=== PATIENT | male | born 1940 | race Caucasian/White ===

== ENCOUNTER 2016-06-27 13:29 | Inpatient (IN) | payer OTHER ==
[~2016-06-27] VITALS: Ht 172.7 cm; Wt 127.4 kg
[~2016-06-27 13:29] MED LIST: ALL300 PO; ASPEC81 PO; CPR250 PO; CRG3125 PO; CYNI1000 INJ; INDO-24 PO; PRED10TA PO; RAMI5CAP PO; ULT/50 PO; VENL150C56 PO; ZCR80 PO
[2016-06-27] MEDS ORDERED: CODCAP PO (14:13)
[2016-06-27] MEDS ORDERED: ETOD200C2 PO (14:13)
[2016-06-27] MEDS ORDERED: OMEG10007 PO (14:13)
[2016-06-27] MEDS ORDERED: CHOL1TAB46 PO (14:13)
[2016-06-27 14:53] LABS: ISTAT CREATININE 1.1 mg/dl (0.6-1.3); ISTAT HEMOGLOBIN 13.9 g/dl (14.0-18.0); ISTAT IONIZED CALCIUM 1.15 mmol/l (1.12-1.32)
--- NOTE | 2016-06-27 14:54 | DIAGNOSTIC IMAGING REPORT ---
CHEST ONE VIEW PORTABLE CLINICAL HISTORY: Dyspnea cough COMPARISON STUDY: 05/15/2014 FINDINGS: Poor respiratory volumes. No major vascular congestion. No focal infiltrate. Severe degenerative change of the shoulders. IMPRESSION: Mild pulmonary vascular congestion Electronically signed by: Marcelino Luciano M.D. 06/27/2016 2:53 PM Dictated Date/Time: 06/27/2016 2:52 PM
[2016-06-27 15:20] LABS: BASO % 0.3 %; BASO ABS # 0.03 K/uL (0-0.2); COMPLETE YES; EOS % 3.6 %; HEMATOCRIT 41.3 % (42-52); IG% 0.8 %; LYMPH % 38.6 %; LYMPH ABS # 3.55 K/uL (1.2-3.4); MEAN CELL VOLUME 91.4 fL (80-100); MEAN CORPUSCULAR HEMOGLOBIN 32.1 pg (25-34); MEAN CORPUSCULAR HGB CONC 35.1 g/dl (32-36); MEAN PLATELET VOLUME 10.5 fL (7.4-10.4); MONO % 8.4 %; NEUT % 48.3 %; PLATELET COUNT 163 K/uL (130-400); RED BLOOD COUNT 4.52 M/uL (4.7-6.1)
[2016-06-27 15:32] LABS: PROTHROMBIN TIME (PATIENT) 11.1 SECONDS (9.0-12.0)
[2016-06-27 15:38] LABS: BUN/CREATININE RATIO 16.4 (10-20); CALCIUM 9.3 mg/dl (8.5-10.1); CREATININE 1.2 mg/dl (0.60-1.40)
[2016-06-27 15:43] LABS: CKMB/CK RATIO 1.4 (0-3.0)
--- NOTE | 2016-06-27 15:45 | DIAGNOSTIC IMAGING REPORT ---
CT ANGIOGRAM OF THE CHEST CLINICAL HISTORY: Shortness of breath. Cough. COMPARISON STUDY: Chest x-ray dated the 2016 TECHNIQUE: Following the IV administration of 114 mL of Optiray-320, CT angiogram of the thorax was performed from the thoracic inlet to the lung bases utilizing the pulmonary embolus protocol. Images are reviewed in the axial, sagittal, and coronal planes. IV contrast was administered without complication. MIP imaging was performed. CT DOSE: 720.71 mGy.cm FINDINGS: There is a partially visualized 14 cm right superior retroperitoneal cyst, likely renal. No pathologically enlarged axillary mediastinal or hilar lymph nodes were visualized. There was no evidence of thoracic aortic dilatation. There are coronary artery calcifications. There is a tiny right upper lobe pulmonary artery filling defect consistent with a tiny embolism. There is also an equivocal filling defect within a left lower lobe pulmonary artery branches that this area is degraded due to motion artifact. No pleural effusions are visualized. Evaluation the parenchyma is significantly limited due to respiratory motion artifact. There is no focal pulmonary consolidation IMPRESSION: 1. Small right upper lobe pulmonary artery filling defect, consistent with a pulmonary embolus. 2. Partially visualized 14 cm cyst within the right retroperitoneum, likely representing a renal cyst Electronically signed by: Dwayne Brower M.D. 06/27/2016 3:43 PM Dictated Date/Time: 06/27/2016 3:31 PM
--- NOTE | 2016-06-27 15:57 | EMERGENCY ROOM VISIT NOTE ---
ED Visit Note First contact with patient: 14:09 Patient was seen by our PA/[employer]. I was involved in the patient's care and did evaluate the patient myself. I was involved in the care throughout the ER stay. The patient's workup does show evidence for a DVT and PE, he is being administered IV heparin. Admission/observation is warranted. The patient is aware of his findings.
[2016-06-27] MEDS ORDERED: HEPARIN SOD 5000 UNIT/0.5 ML CARP IV STA (15:59)
[2016-06-27] MEDS ORDERED: ONDANSETRON INJ 2 MG/ML 2 ML VIAL IV PRN (16:15)
[2016-06-27] MEDS ORDERED: ACETAMINOPHEN 325 MG TAB PO PRN (16:15)
[2016-06-27] MEDS ORDERED: ENOXAPARIN 1 MG/KG SQ SCH (16:15)
[2016-06-27] MEDS ORDERED: NITROGLYCERIN 0.4 MG SL PER TAB CHARGE SL PRN (16:15)
[2016-06-27] MEDS ORDERED: HEPARIN 25,000 UNIT/500ML D5W 500 ML IV PRN (16:15)
[2016-06-27] MEDS ORDERED: SODIUM CHLORIDE 0.9% 1000ML 1,000 ML IV SCH (16:30)
[2016-06-27] MEDS ORDERED: DIPHTHERIA/TETANUS/PERTUSSIS 0.5 ML SYR/VIAL IM. ONE (16:45)
--- NOTE | 2016-06-27 16:57 | History and Physical ---
History & Physical Date & Time of Service: Jun 27, 2016 at 16:31 Chief Complaint: Left Leg Pain-Dx: Blood Clot Primary Care Physician: Jenny Jones D.O. History of Present Illness Source: patient, family, clinic records, hospital records Patient seen and examined. 75 year old male with PMHx of CAD s/p stent, H/o PE, HLD, HTN and other problems listed below presents to the ED from PCP Dr. Jones's office with a DVT. Patient reports he has had on again off again left calf pain for at least a year. He reports he slipped and fell on the ice last month and since then his calf has been more sore. He went to see his PCP today and Doppler US showed unstable thrombotic material in the left popliteal vein. The patient has been having increased dyspnea on exertion so there was concern that he may have a PE so he was referred to the ED for further evaluation. He denies fevers,chills, URI symptoms chest pain, palpitations, nausea, vomiting, diarrhea, dysuria, edema. 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 Daughter states that she has had PEs and was told they were hereditary. Patient reports he no longer takes coumadin. He denies any history of abnormal bleeding. In the ED VS are stable, he is oxygenating well on RA. CTA shows small RUL pulmonary embolism. He will be started on Lovenox. He will be admitted for further workup and treatment. Past Medical/Surgical History Medical Problems: (1) BPH (benign prostatic hyperplasia) Status: Chronic (2) Coronary artery disease Status: Chronic (3) Depression Status: Chronic (4) GERD (gastroesophageal reflux disease) Status: Chronic (5) Gout Status: Chronic (6) Heart attack Status: Resolved (7) HLD (hyperlipidemia) Status: Chronic (8) Hypertension Status: Chronic (9) spermatocele removal Status: Chronic Surgical Problems: (1) H/O cardiac catheterization Status: Resolved (2) H/O colonoscopy Status: Chronic (3) History of esophagogastroduodenoscopy (EGD) Status: Chronic (4) S/P tendon repair Status: Chronic (5) Stented coronary artery Permanent Comment: 05/20/06 LAD, diagonal Status: Chronic Family History Patient reports no known family medical history. Social History Smoking Status: Light Tobacco Smoker Alcohol Use: none Marital Status: Housing status: lives with family Occupational Status: employed Immunizations History of Influenza Vaccine: Yes Influenza Vaccine Date: October 23, 2006 History of Tetanus Vaccine?: No History of Pneumococcal: Yes Pneumococcal Date: October 23, 2006 History of Hepatitis B Vaccine: No Allergies Coded Allergies: No Known Allergies (Verified Allergy, Unknown, 01/23/07) Home Medications Scheduled Allopurinol (Allopurinol), 300 MG PO DAILY Aspirin Enteric Coated (Ecotrin Or Generic *), 81 MG PO DAILY Carvedilol (Carvedilol), 3.125 MG PO BID Cholecalciferol (Vitamin D3), 5,000 UNITS PO DAILY Cod Liver Oil (Cod Liver Oil), 1 CAP PO DAILY Cyanocobalamin (Cyanocobalamin), 1,000 MCG INJ MONTHLY Fish Oil ([place]-3), 1 CAP PO DAILY Ramipril (Ramipril), 5 MG PO DAILY Simvastatin (Simvastatin), 80 MG PO QPM Venlafaxine Hcl (Effexor Extended Rel), 150 MG PO DAILY Scheduled PRN Etodolac (Etodolac), 200 MG PO TID PRN for Pain Review of Systems See above for pertinent positives & negatives. A total of 10 systems reviewed and were otherwise negative. Physical Exam Vital Signs Date Time Temp Pulse Resp B/P Pulse Ox O2 Delivery O2 Flow Rate FiO2 06/27/16 15:21 64 06/27/16 13:35 36.3 66 18 116/81 96 Room Air General Appearance: + pertinent finding (WD/WN 75 year old male lying in bed in NAD with daughter at bedside ) Head: normocephalic, atraumatic Eyes: PERRL, EOMI, sclerae normal ENT: hearing grossly normal, pharynx normal Neck: supple, no JVD, trachea midline Respiratory/Chest: chest non-tender, lungs clear, normal breath sounds, no respiratory distress, no accessory muscle use Cardiovascular: regular rate, rhythm, no edema, no gallop, no JVD, no murmur, normal peripheral pulses Abdomen/GI: normal bowel sounds, non tender, soft Back: normal inspection, no muscle spasm Extremities/Musculoskelatal: no calf tenderness, normal capillary refill, no pedal edema Neurologic/Psych: alert, oriented x 3, + pertinent finding (no motor or sensory deficits noted on gross exam ) Skin: normal color, warm/dry, no rash, + pertinent finding (scatter ecchymosis BL shins ) Lymphatic: no adenopathy Diagnostics Laboratory Results Results Past 24 Hours Test 06/27/16 14:37 06/27/16 14:39 06/27/16 15:01 06/27/16 15:05 Range/Units Bedside Hemoglobin 13.9 14.0-18.0 g/dl Bedside Hematocrit 41 42-52 % Bedside Sodium 139 135-144 mEq/L Bedside Potassium 4.4 3.3-5.0 mEq/L Bedside Chloride 102 101-112 mEq/L Bedside Total CO2 27 24-31 mEq/l Anion Gap 15.0 6.0 3-11 mmol/L Bedside Blood Urea Nitrogen 27 7-18 mg/dl Bedside Creatinine 1.1 0.6-1.3 mg/dl Bedside Glucose (other) 80 70-99 mg/dl Bedside Ionized Calcium (Diony) 1.15 1.12-1.32 mmol/l Bedside Troponin I 0.000 0-0.045 ng/ml White Blood Count 9.20 4.8-10.8 K/uL Red Blood Count 4.52 4.7-6.1 M/uL Hemoglobin 14.5 14.0-18.0 g/dL Hematocrit 41.3 42-52 % Mean Corpuscular Volume 91.4 80-100 fL Mean Corpuscular Hemoglobin 32.1 25-34 pg Mean Corpuscular Hemoglobin Concent 35.1 32-36 g/dl Platelet Count 163 130-400 K/uL Mean Platelet Volume 10.5 7.4-10.4 fL Neutrophils (%) (Auto) 48.3 % Lymphocytes (%) (Auto) 38.6 % Monocytes (%) (Auto) 8.4 % Eosinophils (%) (Auto) 3.6 % Basophils (%) (Auto) 0.3 % Neutrophils # (Auto) 4.45 1.4-6.5 K/uL Lymphocytes # (Auto) 3.55 1.2-3.4 K/uL Monocytes # (Auto) 0.77 0.11-0.59 K/uL Eosinophils # (Auto) 0.33 0-0.5 K/uL Basophils # (Auto) 0.03 0-0.2 K/uL RDW Standard Deviation 46.9 36.4-46.3 fL RDW Coefficient of Variation 14.0 11.5-14.5 % Immature Granulocyte % (Auto) 0.8 % Immature Granulocyte # (Auto) 0.07 0.00-0.02 K/uL Prothrombin Time 11.1 9.0-12.0 SECONDS Prothromb Time International Ratio 1.0 0.9-1.1 Activated Partial Thromboplast Time 26.8 21.0-31.0 SECONDS Partial Thromboplastin Ratio 1.0 Sodium Level 141 136-145 mmol/L Potassium Level 4.0 3.5-5.1 mmol/L Chloride Level 105 98-107 mmol/L Carbon Dioxide Level 30 21-32 mmol/L Blood Urea Nitrogen 20 7-18 mg/dl Creatinine 1.20 0.60-1.40 mg/dl Est Creatinine Clear Calc Drug Dose 66.4 ml/min Estimated GFR () 68.1 Estimated GFR (Non- 58.8 BUN/Creatinine Ratio 16.4 10-20 Random Glucose 78 70-99 mg/dl Calcium Level 9.3 8.5-10.1 mg/dl Total Bilirubin 1.1 0.2-1 mg/dl Aspartate Amino Transf (AST/SGOT) 17 15-37 U/L Alanine Aminotransferase (ALT/SGPT) 19 12-78 U/L Alkaline Phosphatase 78 45-117 U/L Total Creatine Kinase 97 39-308 U/L Creatine Kinase MB 1.4 0.5-3.6 ng/ml Creatine Kinase MB Ratio 1.4 0-3.0 Pro-B-Type Natriuretic Peptide 315 0-900 pg/ml Total Protein 6.9 6.4-8.2 gm/dl Albumin 3.4 3.4-5.0 gm/dl Globulin 3.5 2.5-4.0 gm/dl Albumin/Globulin Ratio 1.0 0.9-2 Diagnostic Radiology CXR Per radiologist read: IMPRESSION: Mild pulmonary vascular congestion CTA CHEST Per radiologist read: IMPRESSION: 1. Small right upper lobe pulmonary artery filling defect, consistent with a pulmonary embolus. 2. Partially visualized 14 cm cyst within the right retroperitoneum, likely representing a renal cyst EKG NSR 68 BPM, LAFB, LVH, QTc 424 Impression Assessment and Plan 75 year old male presents to the ED after Doppler US sound as outpatient showed DVT. Patient with increased dyspnea on exertion. CTA chest shows small PE ACUTE PULMONARY EMBOLISM/DVT -[facility] likely add Coumadin in AM, defer to attending -Hypercoagulability workup pending -Echo pending to r/o Right heart strain -Serial Verenice -CBC, PRP, Mg daily -VS stable, monitor CAD s/p STENT -stable -Continue BB, ASA, Statin, ACEI -update echo -monitor in tele HLD -continue Statin HTN -stable -continue BB, Ramipril GOUT -continue Allopurinol DEPRESSION -continue Effexor B12 deficiency -continue monthly injections RENAL CYST - states this is chronic -incidental finding on CT -follow up with PCP DVT PROPHYLAXIS: therapeutic Lovenox 1mg/kg CODE STATUS: FULL CODE per my discussion with the patient DISPO:In my clinical judgment this beneficiary meets acute admission criteria, established by [facility], that includes being hospitalized through two midnights. Patient seen in collaboration with Dr. Ferro ATTENDING ADDENDUM care coordinated with DAVE Saini please refer to her notes for full details, I agree with her notes patient seen and examined, records reviewed by myself as well on exam, patient seen resting in bed, in good spirits denies dyspnea, chest pain, dizziness no bleeding no other symptoms VS noted and reviewed oriented x 3 , not in distress, speaks in sentences with no effort nor accessory muscle use normal rate, regular rhythm, no murmurs clear breath sounds bilaterally non distended, soft, nontender (+) mild ecchymoses on the right knee no bipedal edema,warmth no neuro deficits Hg 14 crea 1.2 ASSESSMENT/PLAN> DVT, LEFT POPLITEAL VEIN PULMONARY EMBOLISM, RIGHT - history of PE in the past and was on coumadin - hemodynamically stable - ff up echo Lovenox BID - coumadin tomorrow will need to re-establish with coumadin clinic HISTORY OF CAD stable continue usual medications other diagnoses and plan of care as per DAVE Saini's notes Reece Ferro MD VTE Prophylaxis VTE Risk Assessment Done? Y/N: Yes Risk Level: High
[2016-06-27] MEDS ORDERED: ENOXAPARIN 150 MG/1ML SYR SQ STA (17:34)
[2016-06-27 18:30] VITALS: BP 152/80; PULSE 63; TEMP 36.4; O2SAT 98; Ht 172.7 cm; Wt 127.4 kg
[2016-06-27 19:35] VITALS: BP 134/81; PULSE 63; TEMP 36.5; O2SAT 94
[2016-06-27] MEDS: CARVEDILOL 3.125 MG TAB PO SCH (20:47)
[2016-06-27] MEDS: SIMVASTATIN 80 MG TAB PO SCH (20:47)
[2016-06-27 22:29] LABS: CKMB/CK RATIO 1.2 (0-3.0)
--- NOTE | 2016-06-27 23:10 | EMERGENCY ROOM VISIT NOTE ---
History First contact with patient: 14:09 Chief Complaint: LEG PAIN,LEG INJURY Stated Complaint: DVT (DEEP VENOUS THROMBOSIS) History of Present Illness The patient is a 75 year old male who presents to the Emergency Room via private vehicle accompanied by family with complaints of "DVT". The patient states that earlier today he was at [facility] with his family doctor who performed an ultrasound because he noticed that at night his left leg annoyed him. He also has been feeling winded today. The DVT they performed there in the outpatient setting revealed an unstable thrombotic material in the left popliteal vein. The patient states that he does have a history of vomiting embolism which occurred about 30 years ago. His who is present also states that he seems to open winded/experienced shortness of breath lately. There is no chest pain today. He does have history of HI. Review of Systems A complete 10-point Review of Systems was discussed with the patient, with pertinent positives and negatives listed in the History of Present Illness. All remaining Review of Systems questions can be considered negative unless otherwise specified. Past Medical/Surgical History Medical Problems: (1) BPH (benign prostatic hyperplasia) (2) Coronary artery disease (3) Depression (4) DVT (deep venous thrombosis) (5) GERD (gastroesophageal reflux disease) (6) Gout (7) Heart attack (8) HLD (hyperlipidemia) (9) Hypertension (10) Pulmonary embolism (11) spermatocele removal Surgical Problems: (1) H/O cardiac catheterization (2) H/O colonoscopy (3) History of esophagogastroduodenoscopy (EGD) (4) S/P tendon repair (5) Stented coronary artery Family History Patient reports no known family medical history. Social History Smoking Status: Light Tobacco Smoker Marital Status: Housing Status: lives with significant other Occupation Status: employed Current/Historical Medications Scheduled Allopurinol (Allopurinol), 300 MG PO DAILY Aspirin Enteric Coated (Ecotrin Or Generic *), 81 MG PO DAILY Carvedilol (Carvedilol), 3.125 MG PO BID Cholecalciferol (Vitamin D3), 5,000 UNITS PO DAILY Cod Liver Oil (Cod Liver Oil), 1 CAP PO DAILY Cyanocobalamin (Cyanocobalamin), 1,000 MCG INJ MONTHLY Fish Oil (Hugo-3), 1 CAP PO DAILY Ramipril (Ramipril), 5 MG PO DAILY Simvastatin (Simvastatin), 80 MG PO QPM Venlafaxine Hcl (Effexor Extended Rel), 150 MG PO DAILY Scheduled PRN Etodolac (Etodolac), 200 MG PO TID PRN for Pain Allergies Coded Allergies: No Known Allergies (Verified Allergy, Unknown, 01/23/07) Physical Exam Vital Signs Date Time Temp Pulse Resp B/P Pulse Ox O2 Delivery O2 Flow Rate FiO2 06/27/16 15:21 64 06/27/16 13:35 36.3 66 18 116/81 96 Room Air Pain Rating (0-10): 0 Physical Exam VITAL SIGNS - Vital signs and nursing notes were reviewed. Patient is afebrile , normotensive, non-tachycardic and is saturating well on room air 96%. GENERAL -75-year-old male appearing his stated age who is in no acute distress. Communicates well with provider and answers questions appropriately. SKIN - Without rashes. There are small contusions and abrasions noted over the right leg. HEAD - NC/AT. EYES - Sclera anicteric. Palpebral conjunctiva pink and moist with no injection noted. EARS - No deformities of external structures noted on gross examination bilaterally. NOSE - Midline and without cyanosis. No epistaxis or purulent drainage noted. MOUTH/OROPHARYNX - Without perioral cyanosis. NECK - Neck with FROM. LUNGS - Chest wall symmetric without accessory muscle use, intercostals retractions, or central cyanosis. Normal vesicular breath sounds CTA B/L. No wheezes, rales, or rhonchi appreciated. CARDIAC - RRR with S1/S2. No murmur, rubs, or gallops appreciated. EXTREMITIES - No clubbing or peripheral cyanosis. No pretibial edema present. Palpable cord in left calf. +5/5 strength noted in UE/LE bilaterally. NEUROLOGIC - Cranial nerves II through XII grossly intact. PSYCH - Pt is very pleasant and interacts well with examiner. Medical Decision & Procedures ER Provider Diagnostic Interpretation: CHEST ONE VIEW PORTABLE CLINICAL HISTORY: Dyspnea cough COMPARISON STUDY: 05/15/2014 FINDINGS: Poor respiratory volumes. No major vascular congestion. No focal infiltrate. Severe degenerative change of the shoulders. IMPRESSION: Mild pulmonary vascular congestion Electronically signed by: Marcelino Luciano M.D. 06/27/2016 2:53 PM Dictated Date/Time: 06/27/2016 2:[address] ANGIOGRAM OF THE CHEST CLINICAL HISTORY: Shortness of breath. Cough. COMPARISON STUDY: Chest x-ray dated the 2016 TECHNIQUE: Following the IV administration of 114 mL of Optiray-320, CT angiogram of the thorax was performed from the thoracic inlet to the lung bases utilizing the pulmonary embolus protocol. Images are reviewed in the axial, sagittal, and coronal planes. IV contrast was administered without complication. MIP imaging was performed. CT DOSE: 720.71 mGy.cm FINDINGS: There is a partially visualized 14 cm right superior retroperitoneal cyst, likely renal. No pathologically enlarged axillary mediastinal or hilar lymph nodes were visualized. There was no evidence of thoracic aortic dilatation. There are coronary artery calcifications. There is a tiny right upper lobe pulmonary artery filling defect consistent with a tiny embolism. There is also an equivocal filling defect within a left lower lobe pulmonary artery branches that this area is degraded due to motion artifact. No pleural effusions are visualized. Evaluation the parenchyma is significantly limited due to respiratory motion artifact. There is no focal pulmonary consolidation IMPRESSION: 1. Small right upper lobe pulmonary artery filling defect, consistent with a pulmonary embolus. 2. Partially visualized 14 cm cyst within the right retroperitoneum, likely representing a renal cyst Electronically signed by: Dwayne Brower M.D. 06/27/2016 3:43 PM Dictated Date/Time: 06/27/2016 3:31 PM Laboratory Results 06/27/16 15:01 Red Blood Count 4.52, Mean Corpuscular Volume 91.4, Mean Corpuscular Hemoglobin 32.1, Mean Corpuscular Hemoglobin Concent 35.1, Mean Platelet Volume 10.5, Neutrophils (%) (Auto) 48.3, Lymphocytes (%) (Auto) 38.6, Monocytes (%) (Auto) 8.4, Eosinophils (%) (Auto) 3.6, Basophils (%) (Auto) 0.3, Neutrophils # (Auto) 4.45, Lymphocytes # (Auto) 3.55, Monocytes # (Auto) 0.77, Eosinophils # (Auto) 0.33, Basophils # (Auto) 0.03 06/27/16 15:01 Test 06/27/16 14:37 06/27/16 14:39 06/27/16 15:01 Bedside Hemoglobin 13.9 g/dl (14.0-18.0) Bedside Hematocrit 41 % (42-52) Bedside Sodium 139 mEq/L (135-144) Bedside Potassium 4.4 mEq/L (3.3-5.0) Bedside Chloride 102 mEq/L (101-112) Bedside Total CO2 27 mEq/l (24-31) Bedside Blood Urea Nitrogen 27 mg/dl (7-18) Bedside Creatinine 1.1 mg/dl (0.6-1.3) Bedside Glucose (other) 80 mg/dl (70-99) Bedside Ionized Calcium (Diony) 1.15 mmol/l (1.12-1.32) Bedside Troponin I 0.000 ng/ml (0-0.045) White Blood Count 9.20 K/uL (4.8-10.8) Red Blood Count 4.52 M/uL (4.7-6.1) Hemoglobin 14.5 g/dL (14.0-18.0) Hematocrit 41.3 % (42-52) Mean Corpuscular Volume 91.4 fL (80-100) Mean Corpuscular Hemoglobin 32.1 pg (25-34) Mean Corpuscular Hemoglobin Concent 35.1 g/dl (32-36) Platelet Count 163 K/uL (130-400) Mean Platelet Volume 10.5 fL (7.4-10.4) Neutrophils (%) (Auto) 48.3 % Lymphocytes (%) (Auto) 38.6 % Monocytes (%) (Auto) 8.4 % Eosinophils (%) (Auto) 3.6 % Basophils (%) (Auto) 0.3 % Neutrophils # (Auto) 4.45 K/uL (1.4-6.5) Lymphocytes # (Auto) 3.55 K/uL (1.2-3.4) Monocytes # (Auto) 0.77 K/uL (0.11-0.59) Eosinophils # (Auto) 0.33 K/uL (0-0.5) Basophils # (Auto) 0.03 K/uL (0-0.2) RDW Standard Deviation 46.9 fL (36.4-46.3) RDW Coefficient of Variation 14.0 % (11.5-14.5) Immature Granulocyte % (Auto) 0.8 % Immature Granulocyte # (Auto) 0.07 K/uL (0.00-0.02) Prothrombin Time 11.1 SECONDS (9.0-12.0) Prothromb Time International Ratio 1.0 (0.9-1.1) Activated Partial Thromboplast Time 26.8 SECONDS (21.0-31.0) Partial Thromboplastin Ratio 1.0 Anion Gap 6.0 mmol/L (3-11) Est Creatinine Clear Calc Drug Dose 66.4 ml/min Estimated GFR () 68.1 Estimated GFR (Non- 58.8 BUN/Creatinine Ratio 16.4 (10-20) Calcium Level 9.3 mg/dl (8.5-10.1) Total Bilirubin 1.1 mg/dl (0.2-1) Aspartate Amino Transf (AST/SGOT) 17 U/L (15-37) Alanine Aminotransferase (ALT/SGPT) 19 U/L (12-78) Alkaline Phosphatase 78 U/L (45-117) Pro-B-Type Natriuretic Peptide 315 pg/ml (0-900) Total Protein 6.9 gm/dl (6.4-8.2) Albumin 3.4 gm/dl (3.4-5.0) Globulin 3.5 gm/dl (2.5-4.0) Albumin/Globulin Ratio 1.0 (0.9-2) Medical Decision Patient was seen and evaluated as above. After obtaining a thorough history and physical examination IV access was obtained and the above workup was obtained as well as specific coagulation studies prior to potential anticoagulation. I was able to view the disc of the ultrasound. Report was then obtained from Mirna Millard. It revealed an unstable thrombotic material. There was concern for potential PE the patient's past medical history as well as his shortness of breath. I was able to speak with the potential omitting team regarding anticoagulants and heparin was chosen. I ordered heparin for the patient regular standard bolus. CT scan was obtained and revealed pulmonary embolism. No leukocytosis with slight anemia noted on CBC. Coagulation studies were within normal limits. The specific coagulation panels are pending. CMP reveals slight elevation of BUN and total bilirubin. BNP and troponin were both negative. Case was discussed with my attending. I do believe the patient would benefit from inpatient management. His EKG revealed normal sinus rhythm rate of 63 bpm. There was no ectopy or ischemic changes noted. The patient was administered further evaluation and management. The patient was informed of a 14 cm cyst within the right retroperitoneum. In evaluation treatment this patient the following differential diagnoses were entertained: PE, HI, bronchitis, pneumonia, among others. Impression Primary Impression: Pulmonary embolism Additional Impression: DVT (deep venous thrombosis) Departure Information Dispostion Admitted as an inpatient Condition FAIR Referrals Jenny Jones D.O. (PCP) Forms HOME CARE DOCUMENTATION FORM, IMPORTANT VISIT INFORMATION Patient Instructions [facility] Problem Qualifiers Primary Impression: Pulmonary embolism Pulmonary embolism type: other Chronicity: acute Additional Impression: DVT (deep venous thrombosis) DVT location: lower extremity Affected thrombotic vein of extremity: popliteal Laterality: left Chronicity: acute Qualified Codes: I82.432 - Acute embolism and thrombosis of left popliteal vein
[2016-06-27 23:57] VITALS: BP 113/71; PULSE 72; TEMP 36.9; O2SAT 94
[2016-06-28] VITALS (8 sets, daily range): BP systolic 108–119; BP diastolic 67–77; PULSE 60–77; TEMP 36.3–36.8; O2SAT 92–95
[2016-06-28 03:49] LABS: INR 1.1 (0.9-1.1); PARTIAL THROMBOPLASTIN RATIO 1.2; PROTHROMBIN TIME (PATIENT) 11.3 SECONDS (9.0-12.0)
[2016-06-28 04:02] LABS: BLOOD UREA NITROGEN 17 mg/dl (7-18); BUN/CREATININE RATIO 15.7 (10-20); CALCIUM 8.7 mg/dl (8.5-10.1); CARBON DIOXIDE 27 mmol/L (21-32); CHLORIDE 105 mmol/L (98-107); GLUCOSE 90 mg/dl (70-99); MAGNESIUM 1.8 mg/dl (1.8-2.4); POTASSIUM 3.7 mmol/L (3.5-5.1); SODIUM 141 mmol/L (136-145)
[2016-06-28 04:08] LABS: CKMB/CK RATIO 1.3 (0-3.0); HEMATOCRIT 39.5 % (42-52); MEAN CELL VOLUME 91.9 fL (80-100); MEAN CORPUSCULAR HEMOGLOBIN 31.9 pg (25-34); MEAN CORPUSCULAR HGB CONC 34.7 g/dl (32-36); MEAN PLATELET VOLUME 10.9 fL (7.4-10.4); PLATELET COUNT 171 K/uL (130-400); WHITE BLOOD COUNT 8.13 K/uL (4.8-10.8)
[2016-06-28] MEDS: ENOXAPARIN 150 MG/1ML SYR SQ SCH ×2 (06:11→18:47)
--- NOTE | 2016-06-28 07:05 | Clinical Documentation Query ---
CLINICAL DOCUMENTATION QUERY 75 year old male who presents to the Emergency Room via private vehicle accompanied by family with complaints of "DVT" and found to have PE. In your clinical opinion is this patient being managed for: ( X ) Acute DVTof left popliteal vein "provoking/causing" PE. ( ) Other explanation of clinical findings (Please Explain) ( ) Unable to determine (Please Define) ( ) Need to Discuss ( ) Not Agree The medical record reflects the following clinical findings, treatment, and risk factors. Clinical Indicators: Per H&P "left popliteal vein DVT and right PE. Treatment: Heparin GTT, ASA, Risk Factors: Age and hx of previous PE Please clarify and document your clinical opinion in the progress notes and discharge summary. Terms such as "probable", "suspected", "likely", "questionable", "possible", or "still to be ruled out" are acceptable. IF IN AGREEMENT, YOU MUST DOCUMENT ABOVE DIAGNOSTIC STATEMENT IN DAILY PROGRESS NOTES AND DISCHARGE SUMMARY. This document is not part of the patient's record. Thank You, Nehemiah Bustamante, JASMYN [phone]
[2016-06-28] MEDS: ASPIRIN 81 MG ECTAB PO SCH (07:48)
[2016-06-28] MEDS: ENALAPRIL MALEATE 10 MG TAB PO SCH (07:48)
[2016-06-28] MEDS: ALLOPURINOL 300 MG TAB PO SCH (07:48)
[2016-06-28] MEDS: VENLAFAXINE HCL XR 150 MG CAPXR PO SCH (07:48)
[2016-06-28] MEDS: CARVEDILOL 3.125 MG TAB PO SCH ×2 (07:48→20:31)
[2016-06-28] MEDS: CHOLECALCIFEROL 1000 INTER.UNIT TAB PO SCH (07:48)
[2016-06-28] MEDS ORDERED: ENALAPRIL MALEATE 10 MG TAB PO SCH (09:00)
[2016-06-28] MEDS ORDERED: PERFLUTREN LIPID MICROSPHERE (DEFINITY) IV ONE (11:07)
--- NOTE | 2016-06-28 13:08 | ECHOCARDIOGRAM REPORT ---
*NOTICE TO RECEIVING [employer] This information is strictly Confidential and protected under [place] law. [place] law prohibits you from making any further disclosure of this information unless further disclosure is expressly permitted by the written consent of the person to whom it pertains or is authorized by law. A general authorization for the release of medical or other information is not sufficient for this purpose. Hospital accepts no responsibility if the information is made available to any other person, INCLUDING THE PATIENT. Interpretation Summary * Name: TONG KEARNEY Study Date: 06/28/2016 10:31 AM BP: 112/67 mmHg * Patient Location: [facility]\S\N284\S\2 HR: 63 * : 1940 (M/d/yyyy) Gender: Male Height: 66 in * Age: 75 yrs Ethnicity: [place] Weight: 275 lb * Ordering Physician: Meena Saini * Referring Physician: Self, Referred * Performed By: Li So RDCS * * Reason For Study: PE, R/O RIGHT HEART STRAIN * BSA: 2.3 m2 * History: PE, R/O RIGHT HEART STRAIN * -- Conclusions -- * Normal LV chamber size with mild concentric LVH. * Normal LV systolic function, EF 55-60%. * No segmental left ventricular wall motion abnormalities are noted. * Grade I diastolic dysfunction. * The right ventricular cavity size is normal (basal dimension <4.2 cm in right ventricular apical 4-chamber view). Normal RV systolic function by Doppler. * Aortic valve sclerosis moderate, without significant aortic valvular stenosis. * Moderate to large sized, anterior loculated pericardial effusion with significant stranging to suggest chronicity. No hemodynamic compromise. Procedure Details * A contrast injection of Definity was performed to improve assessment of LV function. * Contrast was injected into an intravenous site in the right arm. * One vial of Definity ultrasound contrast was diluted in normal saline to a total volume of 10 ml. A total of '2' ml of solution was administered during imaging. * Lot # [id number] of Definity utilized for procedure. * Expiration date JUN 12. * The attending nurse who injected the contrast agent was WARREN ERICKSON RN. Left Ventricle * The left ventricle is normal in size. * There is mild concentric left ventricular hypertrophy. * Ejection Fraction = 55-60%. * Left ventricular systolic function is normal. * No segmental left ventricular wall motion abnormalities are noted. * The left ventricular wall motion is normal. Right Ventricle * The right ventricular cavity size is normal (basal dimension <4.2 cm in right ventricular apical 4-chamber view). * The right ventricular systolic function is normal as assessed by tricuspid annular plane systolic excursion (TAPSE) (normal >1.5 cm). Atria * The left atrial size is normal. * Right atrial size is normal. * No ASD detected; PFO is not assessed. Mitral Valve * The mitral valve is normal in structure and function. Tricuspid Valve * The tricuspid valve is normal in structure and function. Aortic Valve * The aortic valve is trileaflet. * Aortic valve sclerosis moderate, without significant aortic valvular stenosis. * There is no significant aortic regurgitation. Pulmonic Valve * The pulmonary valve is not well seen, but the Doppler examination is normal without significant regurgitation or stenosis. Great Vessels * The aortic root is normal size. Pericardium/Pleural * Moderate to large sized, anterior loculated pericardial effusion with significant stranging to suggest chronicity. No hemodynamic compromise. Left Ventricular Diastolic Function * Grade I diastolic dysfunction, (abnormal relaxation pattern). MMode 2D Measurements and Calculations IVSd 1.3 cm IVSs 1.4 cm LVIDd 5.0 cm LVIDs 3.5 cm LVPWd 1.6 cm LVPWs 1.5 cm IVS/LVPW 0.78 FS 30.1 % EDV(Teich) 118.9 ml ESV(Teich) 50.9 ml EF(Teich) 57.2 % EDV(cubed) 125.9 ml ESV(cubed) 42.9 ml EF(cubed) 65.9 % % IVS thick 6.6 % % LVPW thick -9.94 % LV mass(C)d 312.5 grams LV mass(C)dI 136.5 grams/m\S\2 LV mass(C)s 178.0 grams LV mass(C)sI 77.7 grams/m\S\2 SV(Teich) 68.0 ml SI(Teich) 29.7 ml/m\S\2 SV(cubed) 82.9 ml SI(cubed) 36.2 ml/m\S\2 Ao root diam 3.4 cm Ao root area 9.0 cm\S\2 LA dimension 2.9 cm LA/Ao 0.86 LVAd ap4 33.2 cm\S\2 LVLd ap4 8.3 cm EDV(MOD-sp4) 106.9 ml EDV(sp4-el) 112.8 ml LVAs ap4 20.7 cm\S\2 LVLs ap4 8.0 cm ESV(MOD-sp4) 43.3 ml ESV(sp4-el) 45.6 ml EF(MOD-sp4) 59.5 % EF(sp4-el) 59.6 % LVAd ap2 32.6 cm\S\2 LVLd ap2 9.1 cm EDV(MOD-sp2) 94.5 ml EDV(sp2-el) 99.0 ml LVAs ap2 21.7 cm\S\2 LVLs ap2 8.2 cm ESV(MOD-sp2) 48.3 ml ESV(sp2-el) 48.9 ml EF(MOD-sp2) 48.9 % EF(sp2-el) 50.6 % LVLd %diff 9.3 % EDV(MOD-bp) 104.8 ml LVLs %diff 2.4 % ESV(MOD-bp) 45.9 ml EF(MOD-bp) 56.2 % SV(MOD-sp4) 63.6 ml SI(MOD-sp4) 27.8 ml/m\S\2 SV(MOD-sp2) 46.2 ml SI(MOD-sp2) 20.2 ml/m\S\2 SV(MOD-bp) 58.9 ml SI(MOD-bp) 25.7 ml/m\S\2 SV(sp4-el) 67.2 ml SI(sp4-el) 29.4 ml/m\S\2 SV(sp2-el) 50.1 ml SI(sp2-el) 21.9 ml/m\S\2 Doppler Measurements and Calculations MV E max sujit 48.5 cm/sec MV A max sujit 83.9 cm/sec MV E/A 0.58 MV dec time 0.37 sec Ao V2 max 193.3 cm/sec Ao max PG 14.9 mmHg Ao max PG (full) 10.8 mmHg Ao V2 mean 130.0 cm/sec Ao mean PG 7.7 mmHg Ao mean PG (full) 5.7 mmHg Ao V2 VTI 43.5 cm LV V1 max PG 4.2 mmHg LV V1 mean PG 2.1 mmHg LV V1 max 101.9 cm/sec LV V1 mean 67.0 cm/sec LV V1 VTI 20.3 cm SV(Ao) 392.8 ml SI(Ao) 171.5 ml/m\S\2
--- NOTE | 2016-06-28 19:45 | Progress Note ---
Internal Med Progress Note Date of Service: Jun 28, 2016. Provider Documentation: SUBJECTIVE: resting comfortably denies chest pain or sob afebrile hemodynamics stable OBJECTIVE: Vital Signs-as noted below Exam: General-alert and oriented ENT-normal hearing Neck-no neck masses Lungs-cta b/l no wheezing no crackles Heart-s1 and s2 heard regular rate and rhythm no murmurs Abdomen-soft bowel sounds present no discomfort no distension Extremities-no erythema no edema Neuro-alert and awake moves extremities Lab data as noted below. ASSESSMENT & PLAN: 75 year old male presents to the ED after Doppler US sound as outpatient showed DVT. Patient with increased dyspnea on exertion. CTA chest shows small PE ACUTE PULMONARY EMBOLISM/DVT DVT causing PE on iv heparin and Coumadin echo -moderate to large anterior pericardial effusion. No hemodynamic compromise. f/u inr CAD s/p STENT stable on BB, ASA, Statin, ACEI HLD on Statin HTN stable on BB, Ramipril GOUT On Allopurinol DEPRESSION On Effexor B12 deficiency monthly injections RENAL CYST states this is chronic incidental finding on CT follow up with PCP DVT PROPHYLAXIS: therapeutic Lovenox 1mg/kg CODE STATUS: FULL CODE DISPOSITION to be determined Vital Signs: Date Time Temp Pulse Resp B/P Pulse Ox O2 Delivery O2 Flow Rate FiO2 06/28/16 16:00 92 Room Air 06/28/16 14:43 36.4 64 20 109/69 92 06/28/16 13:17 60 94 06/28/16 12:00 Room Air 06/28/16 07:45 Room Air 06/28/16 07:28 36.8 63 16 112/67 95 Room Air 06/28/16 04:56 36.3 63 18 119/76 94 Room Air 06/28/16 04:30 Room Air 06/28/16 00:08 Room Air 06/27/16 23:57 36.9 72 20 113/71 94 Room Air 06/27/16 20:25 Room Air Lab Results: Results Past 24 Hours Test 06/27/16 21:19 06/28/16 03:04 Range/Units Total Creatine Kinase 97 107 39-308 U/L Creatine Kinase MB 1.2 1.4 0.5-3.6 ng/ml Creatine Kinase MB Ratio 1.2 1.3 0-3.0 Troponin I < 0.015 < 0.015 0-0.045 ng/ml White Blood Count 8.13 4.8-10.8 K/uL Red Blood Count 4.30 4.7-6.1 M/uL Hemoglobin 13.7 14.0-18.0 g/dL Hematocrit 39.5 42-52 % Mean Corpuscular Volume 91.9 80-100 fL Mean Corpuscular Hemoglobin 31.9 25-34 pg Mean Corpuscular Hemoglobin Concent 34.7 32-36 g/dl RDW Standard Deviation 47.3 36.4-46.3 fL RDW Coefficient of Variation 14.0 11.5-14.5 % Platelet Count 171 130-400 K/uL Mean Platelet Volume 10.9 7.4-10.4 fL Prothrombin Time 11.3 9.0-12.0 SECONDS Prothromb Time International Ratio 1.1 0.9-1.1 Activated Partial Thromboplast Time 31.0 21.0-31.0 SECONDS Partial Thromboplastin Ratio 1.2 Sodium Level 141 136-145 mmol/L Potassium Level 3.7 3.5-5.1 mmol/L Chloride Level 105 98-107 mmol/L Carbon Dioxide Level 27 21-32 mmol/L Anion Gap 9.0 3-11 mmol/L Blood Urea Nitrogen 17 7-18 mg/dl Creatinine 1.10 0.60-1.40 mg/dl Est Creatinine Clear Calc Drug Dose 74.7 ml/min Estimated GFR () 75.7 Estimated GFR (Non- 65.3 BUN/Creatinine Ratio 15.7 10-20 Random Glucose 90 70-99 mg/dl Calcium Level 8.7 8.5-10.1 mg/dl Magnesium Level 1.8 1.8-2.4 mg/dl
[2016-06-28] MEDS ORDERED: WARFARIN SOD 5 MG TAB PO ONE (20:00)
[2016-06-28] MEDS: SIMVASTATIN 80 MG TAB PO SCH (20:31)
[2016-06-29 04:19] VITALS: BP 115/74; PULSE 64; TEMP 36.2; O2SAT 93
[2016-06-29] MEDS: ENOXAPARIN 150 MG/1ML SYR SQ SCH ×2 (06:17→17:44)
[2016-06-29 06:29] LABS: PROTHROMBIN TIME (PATIENT) 11.1 SECONDS (9.0-12.0)
[2016-06-29 07:18] VITALS: BP 134/84; PULSE 71; TEMP 36.4; O2SAT 92
[2016-06-29] MEDS: ENALAPRIL MALEATE 10 MG TAB PO SCH (07:29)
[2016-06-29] MEDS: ALLOPURINOL 300 MG TAB PO SCH (07:29)
[2016-06-29] MEDS: CHOLECALCIFEROL 1000 INTER.UNIT TAB PO SCH (07:29)
[2016-06-29] MEDS: VENLAFAXINE HCL XR 150 MG CAPXR PO SCH (07:29)
[2016-06-29] MEDS: CARVEDILOL 3.125 MG TAB PO SCH ×2 (07:30→21:11)
[2016-06-29] MEDS: ASPIRIN 81 MG ECTAB PO SCH (07:30)
[2016-06-29 11:17] VITALS: BP 103/73; PULSE 77; TEMP 36.6; O2SAT 92
[2016-06-29 15:02] VITALS: BP 96/69; PULSE 63; TEMP 36.3; O2SAT 94
[2016-06-29] MEDS ORDERED: WARFARIN SOD 5 MG TAB PO SCH (16:00)
--- NOTE | 2016-06-29 18:49 | Progress Note ---
Internal Med Progress Note Date of Service: Jun 29, 2016. Provider Documentation: SUBJECTIVE: resting comfortably on the chair denies chest pain or sob afebrile eating fine OBJECTIVE: Vital Signs-as noted below Exam: General-alert and oriented ENT-normal hearing Neck-no neck masses Lungs-cta b/l no wheezing no crackles Heart-s1 and s2 heard regular rate and rhythm no murmurs Abdomen-soft bowel sounds present no discomfort no distension Extremities-no erythema no edema Neuro-alert and awake moves extremities Lab data as noted below. ASSESSMENT & PLAN: 75 year old male presents to the ED after Doppler US sound as outpatient showed DVT. Patient with increased dyspnea on exertion. CTA chest shows small PE ACUTE PULMONARY EMBOLISM/DVT DVT causing PE on iv heparin and Coumadin echo -moderate to large anterior pericardial effusion. No hemodynamic compromise. needs followup echo in 2-3 weeks f/u inr CAD s/p STENT stable on BB, ASA, Statin, ACEI HLD on Statin HTN stable on BB, Ramipril GOUT On Allopurinol DEPRESSION On Effexor B12 deficiency monthly injections RENAL CYST states this is chronic incidental finding on CT follow up with PCP DVT PROPHYLAXIS: therapeutic Lovenox 1mg/kg CODE STATUS: FULL CODE DISPOSITION patient want to discharged on Friday will plan for home Lovenox Vital Signs: Date Time Temp Pulse Resp B/P Pulse Ox O2 Delivery O2 Flow Rate FiO2 06/29/16 16:15 Room Air 06/29/16 15:02 36.3 63 20 96/69 94 06/29/16 12:15 Room Air 06/29/16 11:17 36.6 77 18 103/73 92 06/29/16 08:15 Room Air 06/29/16 07:18 36.4 71 18 134/84 92 06/29/16 04:19 36.2 64 16 115/74 93 Room Air 06/29/16 04:00 Room Air 06/29/16 00:00 Room Air 06/28/16 23:13 36.7 77 20 117/77 93 Room Air 06/28/16 19:50 92 Room Air 06/28/16 19:40 36.4 64 20 114/74 93 Lab Results: Results Past 24 Hours Test 06/29/16 05:41 Range/Units Prothrombin Time 11.1 9.0-12.0 SECONDS Prothromb Time International Ratio 1.0 0.9-1.1
[2016-06-29 18:59] VITALS: BP 114/75; PULSE 66; TEMP 36.4; O2SAT 95
[2016-06-29] MEDS: SIMVASTATIN 80 MG TAB PO SCH (21:10)
[2016-06-29 23:11] VITALS: BP 129/76; PULSE 59; TEMP 36.8; O2SAT 98
[2016-06-30 04:40] VITALS: BP 107/69; PULSE 68; TEMP 36.5; O2SAT 93
[2016-06-30] MEDS: ENOXAPARIN 150 MG/1ML SYR SQ SCH ×2 (05:31→17:34)
[2016-06-30 06:16] LABS: INR 1.1 (0.9-1.1); PROTHROMBIN TIME (PATIENT) 11.4 SECONDS (9.0-12.0)
[2016-06-30 07:14] VITALS: BP 103/69; PULSE 68; TEMP 36.3; O2SAT 91
[2016-06-30] MEDS: CARVEDILOL 3.125 MG TAB PO SCH ×2 (07:50→21:49)
[2016-06-30] MEDS: CHOLECALCIFEROL 1000 INTER.UNIT TAB PO SCH (07:50)
[2016-06-30] MEDS: ASPIRIN 81 MG ECTAB PO SCH (07:50)
[2016-06-30] MEDS: ALLOPURINOL 300 MG TAB PO SCH (07:50)
[2016-06-30] MEDS: VENLAFAXINE HCL XR 150 MG CAPXR PO SCH (07:51)
[2016-06-30] MEDS: ENALAPRIL MALEATE 10 MG TAB PO SCH (07:51)
[2016-06-30 11:56] VITALS: BP 107/75; PULSE 61; TEMP 36.6; O2SAT 95
--- NOTE | 2016-06-30 13:37 | Progress Note ---
Internal Med Progress Note Date of Service: Jun 30, 2016. Provider Documentation: SUBJECTIVE: The patient was seen and examined Denies any symptoms No CP,palpitation,SOB NO Abdominal pain,nausea and or vomiting OBJECTIVE: Vital Signs-as noted below Exam: General- Obese with No distress at rest Eyes-normal ENT-normal Neck-supple Lungs-Clear to ausucltate bilaterally Heart-Regular,no murmur appreciated Abdomen-Benign,no masses,bowel sound present Extremities-No edema Neuro-AAOx3 Lab data as noted below. ASSESSMENT & PLAN: 75 year old male presents to the ED after Doppler US sound as outpatient showed DVT. Patient with increased dyspnea on exertion. CTA chest shows small PE ACUTE PULMONARY EMBOLISM/DVT DVT causing PE Has been on I/V heparin and Coumadin ECHO -moderate to large anterior pericardial effusion.Chronic in nature. No hemodynamic compromise. Needs followup echo in 2-3 weeks Hypercoagulable w/u pending Increase Coumadin to 7.5 mg F/U INR CAD s/p STENT Stable on BB, ASA, Statin, ACEI No acute symptoms HLD on Statin HTN stable on BB, Ramipril GOUT On Allopurinol DEPRESSION On Effexor B12 deficiency Gets monthly injections of B12 RENAL CYST states this is chronic incidental finding on CT follow up with PCP DVT PROPHYLAXIS: therapeutic Lovenox 1mg/kg CODE STATUS: FULL CODE DISPOSITION patient want to discharged on Friday Will plan for home Lovenox Vital Signs: Date Time Temp Pulse Resp B/P Pulse Ox O2 Delivery O2 Flow Rate FiO2 06/30/16 12:00 Room Air 06/30/16 11:56 36.6 61 16 107/75 95 Room Air 06/30/16 08:15 Room Air 06/30/16 07:14 36.3 68 18 103/69 91 Room Air 06/30/16 04:40 36.5 68 20 107/69 93 Room Air 06/30/16 04:00 Room Air 06/30/16 00:00 Room Air 06/29/16 23:11 36.8 59 20 129/76 98 Room Air 06/29/16 20:00 Room Air 06/29/16 18:59 36.4 66 20 114/75 95 Room Air 06/29/16 16:15 Room Air 06/29/16 15:02 36.3 63 20 96/69 94 Lab Results: Results Past 24 Hours Test 06/30/16 05:37 Range/Units Prothrombin Time 11.4 9.0-12.0 SECONDS Prothromb Time International Ratio 1.1 0.9-1.1
[2016-06-30 14:51] VITALS: BP 100/65; PULSE 66; TEMP 36.7; O2SAT 92
[2016-06-30] MEDS ORDERED: WARFARIN SOD 7.5 MG TAB PO SCH (16:00)
[2016-06-30 20:01] VITALS: BP 95/62; PULSE 72; TEMP 36.3; O2SAT 94
[2016-06-30] MEDS: SIMVASTATIN 80 MG TAB PO SCH (21:48)
[2016-06-30 23:44] VITALS: BP 112/71; PULSE 74; TEMP 36.4; O2SAT 95
[2016-07-01 04:48] VITALS: BP 124/69; PULSE 70; TEMP 36.4; O2SAT 93
[2016-07-01] MEDS: ENOXAPARIN 150 MG/1ML SYR SQ SCH ×2 (06:06→17:57)
[2016-07-01 06:26] LABS: INR 1.1 (0.9-1.1); PROTHROMBIN TIME (PATIENT) 12.1 SECONDS (9.0-12.0)
[2016-07-01 07:17] VITALS: BP 116/71; PULSE 88; TEMP 36.7; O2SAT 95
[2016-07-01] MEDS: CARVEDILOL 3.125 MG TAB PO SCH ×2 (08:34→20:16)
[2016-07-01] MEDS: ALLOPURINOL 300 MG TAB PO SCH (08:34)
[2016-07-01] MEDS: CHOLECALCIFEROL 1000 INTER.UNIT TAB PO SCH (08:35)
[2016-07-01] MEDS: VENLAFAXINE HCL XR 150 MG CAPXR PO SCH (08:35)
[2016-07-01] MEDS: ASPIRIN 81 MG ECTAB PO SCH (08:35)
[2016-07-01] MEDS: ENALAPRIL MALEATE 10 MG TAB PO SCH (08:35)
[2016-07-01 11:31] VITALS: BP 126/84; PULSE 65; TEMP 36.6; O2SAT 96
--- NOTE | 2016-07-01 15:13 | Progress Note ---
Internal Med Progress Note Date of Service: Jul 01, 2016. Provider Documentation: SUBJECTIVE: The patient was seen and examined Denies any symptoms No CP,palpitation,SOB Feels tired all the time Getting Physical Therapy OBJECTIVE: Vital Signs-as noted below Exam: General- Obese with No distress at rest Eyes-normal ENT-normal Neck-supple Lungs-Clear to ausucltate bilaterally Heart-Regular,no murmur appreciated Abdomen-Benign,no masses,bowel sound present Extremities-No edema Neuro-AAOx3 Lab data as noted below. ASSESSMENT & PLAN: 75 year old male presents to the ED after Doppler US sound as outpatient showed DVT. Patient with increased dyspnea on exertion. CTA chest shows small PE ACUTE PULMONARY EMBOLISM/DVT DVT causing PE Has been on I/V heparin and Coumadin ECHO -moderate to large anterior pericardial effusion.Chronic in nature. No hemodynamic compromise. Needs followup echo in 2-3 weeks Hypercoagulable w/u pending Increase Coumadin to 10 mg daily F/U INR-not yet changed CAD s/p STENT Stable on BB, ASA, Statin, ACEI No acute symptoms HLD on Statin HTN stable on BB, Ramipril GOUT On Allopurinol DEPRESSION On Effexor B12 deficiency Gets monthly injections of B12 RENAL CYST states this is chronic incidental finding on CT follow up with PCP DVT PROPHYLAXIS: therapeutic Lovenox 1mg/kg CODE STATUS: FULL CODE DISPOSITION Awaiting Likely to discharge home on Lovenox and Coumadin Vital Signs: Date Time Temp Pulse Resp B/P Pulse Ox O2 Delivery O2 Flow Rate FiO2 07/01/16 12:08 Room Air 07/01/16 11:31 36.6 65 16 126/84 96 Room Air 07/01/16 08:40 Room Air 07/01/16 07:17 36.7 88 16 116/71 95 Room Air 07/01/16 04:48 36.4 70 20 124/69 93 Room Air 07/01/16 04:00 Room Air 07/01/16 00:00 Room Air 06/30/16 23:44 36.4 74 20 112/71 95 Room Air 06/30/16 20:01 36.3 72 20 95/62 94 Room Air 06/30/16 20:00 Room Air 06/30/16 16:00 Room Air Lab Results: Results Past 24 Hours Test 07/01/16 05:42 Range/Units Prothrombin Time 12.1 9.0-12.0 SECONDS Prothromb Time International Ratio 1.1 0.9-1.1
[2016-07-01 15:37] VITALS: BP 143/89; PULSE 63; TEMP 36.3; O2SAT 94
[2016-07-01] MEDS ORDERED: WARFARIN SOD 10 MG TAB PO SCH (16:00)
[2016-07-01 20:14] VITALS: BP 124/79; PULSE 65; TEMP 36.5; O2SAT 94
[2016-07-01] MEDS: SIMVASTATIN 80 MG TAB PO SCH (20:16)
[2016-07-01 23:39] VITALS: BP 114/73; PULSE 73; TEMP 36.6; O2SAT 96
[2016-07-02 04:50] VITALS: BP 114/72; PULSE 53; TEMP 36.5; O2SAT 93
[2016-07-02] MEDS: ENOXAPARIN 150 MG/1ML SYR SQ SCH (05:57)
[2016-07-02 06:36] LABS: HEMATOCRIT 39.3 % (42-52); MEAN CELL VOLUME 91.8 fL (80-100); MEAN CORPUSCULAR HEMOGLOBIN 31.8 pg (25-34); MEAN CORPUSCULAR HGB CONC 34.6 g/dl (32-36); MEAN PLATELET VOLUME 10.7 fL (7.4-10.4); PLATELET COUNT 205 K/uL (130-400); RED BLOOD COUNT 4.28 M/uL (4.7-6.1)
[2016-07-02 06:48] LABS: INR 1.4 (0.9-1.1); PROTHROMBIN TIME (PATIENT) 14.7 SECONDS (9.0-12.0)
[2016-07-02 07:02] LABS: BUN/CREATININE RATIO 16.8 (10-20); CALCIUM 8.7 mg/dl (8.5-10.1); CREATININE 0.96 mg/dl (0.60-1.40); MAGNESIUM 2.1 mg/dl (1.8-2.4); PHOSPHORUS 3.1 mg/dl (2.5-4.9)
[2016-07-02 07:14] VITALS: BP 122/79; PULSE 66; TEMP 36.4; O2SAT 91
[2016-07-02 07:45] VITALS: O2SAT 91
[2016-07-02] MEDS: ASPIRIN 81 MG ECTAB PO SCH (07:55)
[2016-07-02] MEDS: ALLOPURINOL 300 MG TAB PO SCH (07:55)
[2016-07-02] MEDS: ENALAPRIL MALEATE 10 MG TAB PO SCH (07:55)
[2016-07-02] MEDS: CHOLECALCIFEROL 1000 INTER.UNIT TAB PO SCH (07:55)
[2016-07-02] MEDS: VENLAFAXINE HCL XR 150 MG CAPXR PO SCH (07:55)
[2016-07-02] MEDS: CARVEDILOL 3.125 MG TAB PO SCH (07:56)
[2016-07-02 11:11] VITALS: BP 100/65; PULSE 65; TEMP 36.5; O2SAT 97
--- NOTE | 2016-07-02 13:40 | Progress Note ---
Internal Med Progress Note Date of Service: Jul 02, 2016. Provider Documentation: SUBJECTIVE: The patient was seen and examined Denies any symptoms No CP,palpitation,SOB Feels much better Ready to be discharged OBJECTIVE: Vital Signs-as noted below Exam: General- Obese with No distress at rest Eyes-normal ENT-normal Neck-supple Lungs-Clear to ausucltate bilaterally Heart-Regular,no murmur appreciated Abdomen-Benign,no masses,bowel sound present Extremities-No edema Neuro-AAOx3 Lab data as noted below. ASSESSMENT & PLAN: 75 year old male presents to the ED after Doppler US sound as outpatient showed DVT. Patient with increased dyspnea on exertion. CTA chest shows small PE ACUTE PULMONARY EMBOLISM/DVT DVT causing PE Has been on I/V heparin and Coumadin ECHO -moderate to large anterior pericardial effusion.Chronic in nature. No hemodynamic compromise. Needs followup echo in 2-3 weeks Hypercoagulable w/u pending Increase Coumadin to 10 mg daily F/U INR-1.4 today Will discharge on Lovenox and Coumadin CAD s/p STENT Stable on BB, ASA, Statin, ACEI ECHO:Normal LV chamber size with mild concentric LVH. * Normal LV systolic function, EF 55-60%. * No segmental left ventricular wall motion abnormalities are noted. * Grade I diastolic dysfunction. * The right ventricular cavity size is normal (basal dimension <4.2 cm in right ventricular apical 4-chamber view). Normal RV systolic function by Doppler. * Aortic valve sclerosis moderate, without significant aortic valvular stenosis. * Moderate to large sized, anterior loculated pericardial effusion with significant stranging to suggest chronicity. No hemodynamic compromise. No acute symptoms Continue current medications HLD on Statin HTN stable on BB, Ramipril GOUT On Allopurinol DEPRESSION On Effexor B12 deficiency Gets monthly injections of B12 RENAL CYST states this is chronic incidental finding on CT follow up with PCP DVT PROPHYLAXIS: therapeutic Lovenox 1mg/kg CODE STATUS: FULL CODE DISPOSITION Awaiting Likely to discharge home on Lovenox and Coumadin Vital Signs: Date Time Temp Pulse Resp B/P Pulse Ox O2 Delivery O2 Flow Rate FiO2 07/02/16 11:11 36.5 65 20 100/65 97 07/02/16 11:02 36.4 66 20 91 Room Air 07/02/16 07:45 91 Room Air 07/02/16 07:14 36.4 66 20 122/79 91 07/02/16 04:50 36.5 53 20 114/72 93 Room Air 07/02/16 04:00 Room Air 07/02/16 00:00 Room Air 07/01/16 23:39 36.6 73 20 114/73 96 Room Air 07/01/16 20:14 36.5 65 22 124/79 94 Room Air 07/01/16 20:00 Room Air 07/01/16 16:05 Room Air 07/01/16 15:37 36.3 63 16 143/89 94 Room Air Lab Results: Results Past 24 Hours Test 07/02/16 05:50 Range/Units White Blood Count 8.90 4.8-10.8 K/uL Red Blood Count 4.28 4.7-6.1 M/uL Hemoglobin 13.6 14.0-18.0 g/dL Hematocrit 39.3 42-52 % Mean Corpuscular Volume 91.8 80-100 fL Mean Corpuscular Hemoglobin 31.8 25-34 pg Mean Corpuscular Hemoglobin Concent 34.6 32-36 g/dl RDW Standard Deviation 47.4 36.4-46.3 fL RDW Coefficient of Variation 14.2 11.5-14.5 % Platelet Count 205 130-400 K/uL Mean Platelet Volume 10.7 7.4-10.4 fL Prothrombin Time 14.7 9.0-12.0 SECONDS Prothromb Time International Ratio 1.4 0.9-1.1 Sodium Level 139 136-145 mmol/L Potassium Level 4.0 3.5-5.1 mmol/L Chloride Level 105 98-107 mmol/L Carbon Dioxide Level 25 21-32 mmol/L Anion Gap 9.0 3-11 mmol/L Blood Urea Nitrogen 16 7-18 mg/dl Creatinine 0.96 0.60-1.40 mg/dl Est Creatinine Clear Calc Drug Dose 86.5 ml/min Estimated GFR () 89.3 Estimated GFR (Non- 77.0 BUN/Creatinine Ratio 16.8 10-20 Random Glucose 84 70-99 mg/dl Calcium Level 8.7 8.5-10.1 mg/dl Phosphorus Level 3.1 2.5-4.9 mg/dl Magnesium Level 2.1 1.8-2.4 mg/dl
[2016-07-02] MEDS ORDERED: LVNIS150 SQ (14:00)
[2016-07-02] MEDS ORDERED: WARF5TAB90 PO (14:00)
--- NOTE | 2016-07-02 14:06 | Discharge Instructions ---
Discharge Instructions Admission Reason for Admission: Dvt (Deep Venous Thrombosis) Discharge Discharge Diagnosis / Problem: Pulmonary Embolism,DVT Discharge Goals Goal(s): Prevent Disease Progression Activity Recommendations Activity Limitations: resume your previous activity . Instructions / Follow-Up Instructions / Follow-Up Dr Gar on 07/08/16 at 8:50AM.Coagulation clinic will call for follow up Current Hospital Diet Patient's current hospital diet: AHA Diet (Heart Healthy) Discharge Diet Recommended Diet: AHA Diet (Heart Healthy) Pending Studies Studies pending at discharge: no Laboratory Results Hypercoagulable w/u results pending Medical Emergencies . Who to Call and When: Medical Emergencies: If at any time you feel your situation is an emergency, please call 911 immediately. . Non-Emergent Contact Non-Emergency issues call your: Primary Care Provider . . "Provider Documentation" section prepared by Robert Delacruz. VTE Core Measure Inpt VTE Proph given/why not?: Enoxaparin (Lovenox)SQ, Unfractionated heparin SQ, Warfarin (Coumadin)
--- NOTE | 2016-07-03 08:11 | Discharge Summary ---
Discharge Summary Admission Date: Jun 27, 2016 at 16:14 Discharge Date: Jul 02, 2016 Discharge Disposition: Home Principal Diagnosis: Pulmonary Embolism,DVT Secondary Diagnoses/Problems: Please see H&P Pending Studies/Follow-Up: Hypercoagulable tests results Medication Reconciliation New Medications: Warfarin Sodium (Coumadin) 5 Mg Tab 10 MG PO DAILY, #30 TAB Please dose to keep INR between 2 to 3. Enoxaparin (Lovenox) 150 Mg/1 Ml Inj 150 MG SQ DAILY for 5 Days, #5 Continued Medications: Allopurinol (Allopurinol) 300 Mg Tab 300 MG PO DAILY for 90 Days Aspirin Enteric Coated (Ecotrin Or Generic *) 81 Mg Ectab 81 MG PO DAILY, 0 Refills Carvedilol (Carvedilol) 3.125 Mg Tab 3.125 MG PO BID for 90 Days Cholecalciferol (Vitamin D3) 5,000 Unit Tab 5000 UNITS PO DAILY Cod Liver Oil (Cod Liver Oil) 1 Cap Cap 1 CAP PO DAILY Cyanocobalamin (Cyanocobalamin) 1,000 Mcg/Ml Inj 1000 MCG INJ MONTHLY for 90 Days Etodolac (Etodolac) 200 Mg Cap 200 MG PO TID PRN for Pain TAKE WITH FOOD Fish Oil ([place]-3) 1 Ea Cap 1 CAP PO DAILY, CAP Ramipril (Ramipril) 5 Mg Cap 5 MG PO DAILY for 90 Days Simvastatin (Simvastatin) 80 Mg Tab 80 MG PO QPM for 90 Days Venlafaxine Hcl (Effexor Extended Rel) 150 Mg Cap 150 MG PO DAILY, CAP Admission Information HPI (per Admitting provider): Patient seen and examined. 75 year old male with PMHx of CAD s/p stent, H/o PE, HLD, HTN and other problems listed below presents to the ED from PCP Dr. Jones's office with a DVT. Patient reports he has had on again off again left calf pain for at least a year. He reports he slipped and fell on the ice last month and since then his calf has been more sore. He went to see his PCP today and Doppler US showed unstable thrombotic material in the left popliteal vein. The patient has been having increased dyspnea on exertion so there was concern that he may have a PE so he was referred to the ED for further evaluation. He denies fevers,chills, URI symptoms chest pain, palpitations, nausea, vomiting, diarrhea, dysuria, edema. 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 Daughter states that she has had PEs and was told they were hereditary. Patient reports he no longer takes coumadin. He denies any history of abnormal bleeding. In the ED VS are stable, he is oxygenating well on RA. CTA shows small RUL pulmonary embolism. He will be started on Lovenox. He will be admitted for further workup and treatment. Past Medical/Surgical History Medical Problems: (1) BPH (benign prostatic hyperplasia) Status: Chronic (2) Coronary artery disease Status: Chronic (3) Depression Status: Chronic (4) GERD (gastroesophageal reflux disease) Status: Chronic (5) Gout Status: Chronic (6) Heart attack Status: Resolved (7) HLD (hyperlipidemia) Status: Chronic (8) Hypertension Status: Chronic (9) spermatocele removal Status: Chronic Surgical Problems: (1) H/O cardiac catheterization Status: Resolved (2) H/O colonoscopy Status: Chronic (3) History of esophagogastroduodenoscopy (EGD) Status: Chronic (4) S/P tendon repair Status: Chronic (5) Stented coronary artery Permanent Comment: 05/20/06 LAD, diagonal Status: Chronic Family History Patient reports no known family medical history. Social History Smoking Status: Light Tobacco Smoker Alcohol Use: none Marital Status: Housing status: lives with family Occupational Status: employed Immunizations History of Influenza Vaccine: Yes Influenza Vaccine Date: October 23, 2006 History of Tetanus Vaccine?: No History of Pneumococcal: Yes Pneumococcal Date: October 23, 2006 History of Hepatitis B Vaccine: No Allergies Coded Allergies: No Known Allergies (Verified Allergy, Unknown, 01/23/07) Home Medications Scheduled Allopurinol (Allopurinol), 300 MG PO DAILY Aspirin Enteric Coated (Ecotrin Or Generic *), 81 MG PO DAILY Carvedilol (Carvedilol), 3.125 MG PO BID Cholecalciferol (Vitamin D3), 5,000 UNITS PO DAILY Cod Liver Oil (Cod Liver Oil), 1 CAP PO DAILY Cyanocobalamin (Cyanocobalamin), 1,000 MCG INJ MONTHLY Fish Oil ([place]-3), 1 CAP PO DAILY Ramipril (Ramipril), 5 MG PO DAILY Simvastatin (Simvastatin), 80 MG PO QPM Venlafaxine Hcl (Effexor Extended Rel), 150 MG PO DAILY Scheduled PRN Etodolac (Etodolac), 200 MG PO TID PRN for Pain Review of Systems See above for pertinent positives & negatives. A total of 10 systems reviewed and were otherwise negative. Physical Exam Vital Signs Date Time Temp Pulse Resp B/P Pulse Ox O2 Delivery O2 Flow Rate FiO2 06/27/16 15:21 64 06/27/16 13:35 36.3 66 18 116/81 96 Room Air General Appearance: + pertinent finding (WD/WN 75 year old male lying in bed in NAD with daughter at bedside ) Head: normocephalic, atraumatic Eyes: PERRL, EOMI, sclerae normal ENT: hearing grossly normal, pharynx normal Neck: supple, no JVD, trachea midline Respiratory/Chest: chest non-tender, lungs clear, normal breath sounds, no respiratory distress, no accessory muscle use Cardiovascular: regular rate, rhythm, no edema, no gallop, no JVD, no murmur, normal peripheral pulses Abdomen/GI: normal bowel sounds, non tender, soft Back: normal inspection, no muscle spasm Extremities/Musculoskelatal: no calf tenderness, normal capillary refill, no pedal edema Neurologic/Psych: alert, oriented x 3, + pertinent finding (no motor or sensory deficits noted on gross exam ) Skin: normal color, warm/dry, no rash, + pertinent finding (scatter ecchymosis BL shins ) Lymphatic: no adenopathy Diagnostics Laboratory Results Results Past 24 Hours Test 06/27/16 14:37 06/27/16 14:39 06/27/16 15:01 06/27/16 15:05 Range/Units Bedside Hemoglobin 13.9 14.0-18.0 g/dl Bedside Hematocrit 41 42-52 % Bedside Sodium 139 135-144 mEq/L Bedside Potassium 4.4 3.3-5.0 mEq/L Bedside Chloride 102 101-112 mEq/L Bedside Total CO2 27 24-31 mEq/l Anion Gap 15.0 6.0 3-11 mmol/L Bedside Blood Urea Nitrogen 27 7-18 mg/dl Bedside Creatinine 1.1 0.6-1.3 mg/dl Bedside Glucose (other) 80 70-99 mg/dl Bedside Ionized Calcium ([place]) 1.15 1.12-1.32 mmol/l Bedside Troponin I 0.000 0-0.045 ng/ml White Blood Count 9.20 4.8-10.8 K/uL Red Blood Count 4.52 4.7-6.1 M/uL Hemoglobin 14.5 14.0-18.0 g/dL Hematocrit 41.3 42-52 % Mean Corpuscular Volume 91.4 80-100 fL Mean Corpuscular Hemoglobin 32.1 25-34 pg Mean Corpuscular Hemoglobin Concent 35.1 32-36 g/dl Platelet Count 163 130-400 K/uL Mean Platelet Volume 10.5 7.4-10.4 fL Neutrophils (%) (Auto) 48.3 % Lymphocytes (%) (Auto) 38.6 % Monocytes (%) (Auto) 8.4 % Eosinophils (%) (Auto) 3.6 % Basophils (%) (Auto) 0.3 % Neutrophils # (Auto) 4.45 1.4-6.5 K/uL Lymphocytes # (Auto) 3.55 1.2-3.4 K/uL Monocytes # (Auto) 0.77 0.11-0.59 K/uL Eosinophils # (Auto) 0.33 0-0.5 K/uL Basophils # (Auto) 0.03 0-0.2 K/uL RDW Standard Deviation 46.9 36.4-46.3 fL RDW Coefficient of Variation 14.0 11.5-14.5 % Immature Granulocyte % (Auto) 0.8 % Immature Granulocyte # (Auto) 0.07 0.00-0.02 K/uL Prothrombin Time 11.1 9.0-12.0 SECONDS Prothromb Time International Ratio 1.0 0.9-1.1 Activated Partial Thromboplast Time 26.8 21.0-31.0 SECONDS Partial Thromboplastin Ratio 1.0 Sodium Level 141 136-145 mmol/L Potassium Level 4.0 3.5-5.1 mmol/L Chloride Level 105 98-107 mmol/L Carbon Dioxide Level 30 21-32 mmol/L Blood Urea Nitrogen 20 7-18 mg/dl Creatinine 1.20 0.60-1.40 mg/dl Est Creatinine Clear Calc Drug Dose 66.4 ml/min Estimated GFR () 68.1 Estimated GFR (Non- 58.8 BUN/Creatinine Ratio 16.4 10-20 Random Glucose 78 70-99 mg/dl Calcium Level 9.3 8.5-10.1 mg/dl Total Bilirubin 1.1 0.2-1 mg/dl Aspartate Amino Transf (AST/SGOT) 17 15-37 U/L Alanine Aminotransferase (ALT/SGPT) 19 12-78 U/L Alkaline Phosphatase 78 45-117 U/L Total Creatine Kinase 97 39-308 U/L Creatine Kinase MB 1.4 0.5-3.6 ng/ml Creatine Kinase MB Ratio 1.4 0-3.0 Pro-B-Type Natriuretic Peptide 315 0-900 pg/ml Total Protein 6.9 6.4-8.2 gm/dl Albumin 3.4 3.4-5.0 gm/dl Globulin 3.5 2.5-4.0 gm/dl Albumin/Globulin Ratio 1.0 0.9-2 Diagnostic Radiology CXR Per radiologist read: IMPRESSION: Mild pulmonary vascular congestion CTA CHEST Per radiologist read: IMPRESSION: 1. Small right upper lobe pulmonary artery filling defect, consistent with a pulmonary embolus. 2. Partially visualized 14 cm cyst within the right retroperitoneum, likely representing a renal cyst EKG NSR 68 BPM, LAFB, LVH, QTc 424 Impression Assessment and Plan 75 year old male presents to the ED after Doppler US sound as outpatient showed DVT. Patient with increased dyspnea on exertion. CTA chest shows small PE ACUTE PULMONARY EMBOLISM/DVT -Admit to tele -Start Lovenox 1mg/kg - likely add Coumadin in AM, defer to attending -Hypercoagulability workup pending -Echo pending to r/o Right heart strain -Serial Verenice -CBC, PRP, Mg daily -VS stable, monitor CAD s/p STENT -stable -Continue BB, ASA, Statin, ACEI -update echo -monitor in tele HLD -continue Statin HTN -stable -continue BB, Ramipril GOUT -continue Allopurinol DEPRESSION -continue Effexor B12 deficiency -continue monthly injections RENAL CYST - states this is chronic -incidental finding on CT -follow up with PCP DVT PROPHYLAXIS: therapeutic Lovenox 1mg/kg CODE STATUS: FULL CODE per my discussion with the patient DISPO:In my clinical judgment this beneficiary meets acute admission criteria, established by [facility], that includes being hospitalized through two midnights. Patient seen in collaboration with Dr. Ferro ATTENDING ADDENDUM care coordinated with DAVE Saini please refer to her notes for full details, I agree with her notes patient seen and examined, records reviewed by myself as well on exam, patient seen resting in bed, in good spirits denies dyspnea, chest pain, dizziness no bleeding no other symptoms VS noted and reviewed oriented x 3 , not in distress, speaks in sentences with no effort nor accessory muscle use normal rate, regular rhythm, no murmurs clear breath sounds bilaterally non distended, soft, nontender (+) mild ecchymoses on the right knee no bipedal edema,warmth no neuro deficits Hg 14 crea 1.2 ASSESSMENT/PLAN> DVT, LEFT POPLITEAL VEIN PULMONARY EMBOLISM, RIGHT - history of PE in the past and was on coumadin - hemodynamically stable - ff up echo Lovenox BID - coumadin tomorrow will need to re-establish with coumadin clinic HISTORY OF CAD stable continue usual medications other diagnoses and plan of care as per DAVE Saini's notes Reece Ferro MD VTE Prophylaxis VTE Risk Assessment Done? Y/N: Yes Risk Level: High Physical Exam (per Admitting): General Appearance: + pertinent finding (WD/WN 75 year old male lying in bed in NAD with daughter at bedside ) Head: normocephalic, atraumatic Eyes: PERRL, EOMI, sclerae normal ENT: hearing grossly normal, pharynx normal Neck: supple, no JVD, trachea midline Respiratory/Chest: chest non-tender, lungs clear, normal breath sounds, no respiratory distress, no accessory muscle use Cardiovascular: regular rate, rhythm, no edema, no gallop, no JVD, no murmur , normal peripheral pulses Abdomen/GI: normal bowel sounds, non tender, soft Back: normal inspection, no muscle spasm Extremities/Musculoskelatal: no calf tenderness, normal capillary refill, no pedal edema Neurologic/Psych: alert, oriented x 3, + pertinent finding (no motor or sensory deficits noted on gross exam ) Skin: normal color, warm/dry, no rash, + pertinent finding (scatter ecchymosis BL shins ) Lymphatic: no adenopathy Hospital Course 75 year old male presents to the ED after Doppler US sound as outpatient showed DVT. Patient with increased dyspnea on exertion. CTA chest shows small PE ACUTE PULMONARY EMBOLISM/DVT DVT causing PE Has been on I/V heparin and Coumadin ECHO -moderate to large anterior pericardial effusion.Chronic in nature. No hemodynamic compromise. Needs followup echo in 2-3 weeks Hypercoagulable w/u pending Increase Coumadin to 10 mg daily F/U INR-1.4 today Will discharge on Lovenox and Coumadin CAD s/p STENT Stable on BB, ASA, Statin, ACEI ECHO:Normal LV chamber size with mild concentric LVH. * Normal LV systolic function, EF 55-60%. * No segmental left ventricular wall motion abnormalities are noted. * Grade I diastolic dysfunction. * The right ventricular cavity size is normal (basal dimension <4.2 cm in right ventricular apical 4-chamber view). Normal RV systolic function by Doppler. * Aortic valve sclerosis moderate, without significant aortic valvular stenosis. * Moderate to large sized, anterior loculated pericardial effusion with significant stranging to suggest chronicity. No hemodynamic compromise. No acute symptoms Continue current medications HLD on Statin HTN stable on BB, Ramipril GOUT On Allopurinol DEPRESSION On Effexor B12 deficiency Gets monthly injections of B12 RENAL CYST states this is chronic incidental finding on CT follow up with PCP DVT PROPHYLAXIS: therapeutic Lovenox 1mg/kg CODE STATUS: FULL CODE DISPOSITION Awaiting Likely to discharge home on Lovenox and Coumadin Total time spent on discharge = 35 minutes This includes examination of the patient, discharge planning, medication reconciliation, and communication with other providers. Discharge Instructions Admission Reason for Admission: Dvt (Deep Venous Thrombosis) Discharge Discharge Diagnosis / Problem: Pulmonary Embolism,DVT Discharge Goals Goal(s): Prevent Disease Progression Activity Recommendations Activity Limitations: resume your previous activity . Instructions / Follow-Up Instructions / Follow-Up Dr Gar on 07/08/16 at 8:50AM.Coagulation clinic will call for follow up Current Hospital Diet Patient's current hospital diet: AHA Diet (Heart Healthy) Discharge Diet Recommended Diet: AHA Diet (Heart Healthy) Pending Studies Studies pending at discharge: no Laboratory Results Hypercoagulable w/u results pending Medical Emergencies . Who to Call and When: Medical Emergencies: If at any time you feel your situation is an emergency, please call 911 immediately. . Non-Emergent Contact Non-Emergency issues call your: Primary Care Provider . . "Provider Documentation" section prepared by Robert Delacruz. VTE Core Measure Inpt VTE Proph given/why not?: Enoxaparin (Lovenox)SQ, Unfractionated heparin SQ, Warfarin (Coumadin) <Electronically signed by Robert Delacruz M.D.> Additional Copies To Jenyn Jones D.O.
[2016-07-05 11:22] LABS: ANTITHROMBINIII ACTIVITY** 82 % activity (80-120); B2 GLYCOPROTEIN IGA <9 SAU (<=20); B2 GLYCOPROTEIN IGG <9 SGU (<=20); B2 GLYCOPROTEIN IGM <9 SMU (<=20); LUPUS ANTICOAGULANT** TC36573X Negative (Negative); PROTEIN C ACTIVITY** TC 1777X 135 % (70-180); PROTEIN S ACT(FUNCT)**1779X 91 % (70-150)
== END 2016-07-02 14:48 | disposition home or self-care (01) | DRG 299 ==
LOC: ENRESERVTM → ENRESERVDT → C.EDB 13:30 → C.MED 16:14
PROVIDERS: ADMIT Internal Medicine; ATTEND Internal Medicine
DX: I82.432 Acute embolism and thrombosis of left popliteal vein (principal); I26.99 Other pulmonary embolism without acute cor pulmonale; I31.3 Pericardial effusion (noninflammatory); I25.10 Atherosclerotic heart disease of native coronary artery without angina pectoris; E78.5 Hyperlipidemia, unspecified; F32.9 Major depressive disorder, single episode, unspecified; K21.9 Gastro-esophageal reflux disease without esophagitis; M10.9 Gout, unspecified; N40.0 Benign prostatic hyperplasia without lower urinary tract symptoms; E53.8 Deficiency of other specified B group vitamins; F17.210 Nicotine dependence, cigarettes, uncomplicated; I25.2 Old myocardial infarction; N28.1 Cyst of kidney, acquired; I10 Essential (primary) hypertension; Z95.5 Presence of coronary angioplasty implant and graft; Z79.82 Long term (current) use of aspirin; Z79.1 Long term (current) use of non-steroidal anti-inflammatories (NSAID)

== ENCOUNTER 2016-08-25 00:16 | Emergency (ER) | payer OTHER ==
[~2016-08-25 00:16] MED LIST changes: +CHOL1TAB46 PO; +CODCAP4 PO; -CPR250 PO; +ETOD200C2 PO; -INDO-24 PO; +LVNIS150 SQ; +OMEG10007 PO; -PRED10TA PO; -ULT/50 PO; +WARF5TAB90 PO
[2016-08-25 00:23] VITALS: TEMP 36.9; Ht 167.6 cm
[2016-08-25] MEDS ORDERED: OXYCODONE HCL IR 5 MG TAB (IMMEDIATE RELEASE) PO STA ×2 (00:35→01:48)
[2016-08-25] MEDS ORDERED: ACETAMINOPHEN 500 MG TAB PO STA (00:35)
--- NOTE | 2016-08-25 00:41 | EMERGENCY ROOM VISIT NOTE ---
History Report prepared by Donnie: Brandon Merida Under the Supervision of: Dr. Desmond Cash M.D. First contact with patient: 00:27 Chief Complaint: NECK PAIN Stated Complaint: PAIN FROM NECK INTO HEAD History of Present Illness The patient is a 75 year old male who presents to the Emergency Room with complaints of a constant stiff-like neck pain that began this afternoon. The patient rates his pain severe in nature. The patient was in the ED two months ago for a blood clot in his leg and his lung. He does not know what could have caused this pain in his neck. His pain is radiating into his right shoulder. He notes that Icy Hot did not help his pain at all. He does note that he has had many previous shoulder injuries in both shoulders. He denies any headaches. He has had a stiff neck before, but it has never been this bad. His pain worsens with palpation. He is still taking his blood thinners. Of note, the patient woke up with the pain, he wonders if he slept wrong. Source of History: patient Onset: this afternoon Position: neck Symptom Intensity: severe Quality: other (stiffness) Timing: constant Modifying Factors (Worsening): other (palpation) Associated Symptoms: No headache Note: His pain radiates into his right shoulder. Review of Systems See HPI for pertinent positives & negatives. A total of 10 systems reviewed and were otherwise negative. Past Medical & Surgical Medical Problems: (1) BPH (benign prostatic hyperplasia) (2) Coronary artery disease (3) Depression (4) DVT (deep venous thrombosis) (5) GERD (gastroesophageal reflux disease) (6) Gout (7) Heart attack (8) HLD (hyperlipidemia) (9) Hypertension (10) Pulmonary embolism (11) spermatocele removal Surgical Problems: (1) H/O cardiac catheterization (2) H/O colonoscopy (3) History of esophagogastroduodenoscopy (EGD) (4) S/P tendon repair (5) Stented coronary artery Family History Patient reports no known family medical history. Social History Smoking Status: Light Tobacco Smoker Drug Use: none Marital Status: Housing Status: lives with significant other Occupation Status: employed Current/Historical Medications Scheduled Allopurinol (Allopurinol), 300 MG PO DAILY Aspirin Enteric Coated (Ecotrin Or Generic *), 81 MG PO DAILY Carvedilol (Carvedilol), 3.125 MG PO BID Cholecalciferol (Vitamin D3), 5,000 UNITS PO DAILY Cod Liver Oil (Cod Liver Oil), 1 CAP PO DAILY Cyanocobalamin (Cyanocobalamin), 1,000 MCG INJ MONTHLY Fish Oil ([place]-3), 1 CAP PO DAILY Ramipril (Ramipril), 5 MG PO DAILY Simvastatin (Simvastatin), 80 MG PO QPM Venlafaxine Hcl (Effexor Extended Rel), 150 MG PO DAILY Warfarin Sodium (Coumadin), 5 MG PO 4XWK Warfarin Sodium (Coumadin), 7.5 MG PO 3XWK Scheduled PRN Etodolac (Etodolac), 200 MG PO TID PRN for Pain Oxycodone Ir (Roxicodone Ir), 1-2 TAB PO Q4H PRN for Pain Allergies Coded Allergies: No Known Allergies (Verified Allergy, Unknown, 01/23/07) Physical Exam Vital Signs Date Time Temp Pulse Resp B/P Pulse Ox O2 Delivery O2 Flow Rate FiO2 08/25/16 02:59 73 20 103/55 97 Room Air 08/25/16 00:23 36.9 75 20 144/83 97 Room Air Physical Exam GENERAL: Patient is in no acute distress. HEENT: No acute trauma, normocephalic atraumatic, mucous membranes moist, no nasal congestion, no scleral icterus. NECK: Tender to palpate the right posterior cervical muscles and the right trapezius muscle, no rash, pain also worsens with movement, no anterior neck tenderness, no stridor. LUNGS: Clear to auscultation bilaterally, no wheeze, no rhonchi, breath sounds equal. HEART: Without murmurs gallops or rubs, regular rate and rhythm. ABDOMEN: Soft, nontender, bowel sounds positive, no hernias, no peritonitis. EXTREMITIES: No cyanosis, mild bilateral pedal edema, full range of motion of all the joints without pain or difficulty, no signs for acute trauma. NEUROLOGIC: Oriented x 3, no acute motor or sensory deficits, no focal weakness. SKIN: No rash, no jaundice, no diaphoresis. Medical Decision & Procedures ER Provider Diagnostic Interpretation: Radiology results are stated below per my review and radiologist interpretation: CT C SPINE: No fracture or malalignment Multilevel spondylosis/discogenic change Bilateral areas of foraminal stenosis appears greatest on the right at C3-4 and C4-5 Radiologist: Brett Nuñez M.D. Medications Administered Medications (Trade) Dose Ordered Sig/Miguel Angel Route Start Time Stop Time Status Last Admin Dose Admin Oxycodone HCl (Roxicodone Immediate Rel Tab) 5 mg NOW STAT PO 08/25/16 00:35 08/25/16 00:38 DC 08/25/16 00:53 5 MG Ondansetron HCl (Zofran Odt) 4 mg ONE ONCE PO 08/25/16 00:45 08/25/16 00:46 DC 08/25/16 00:51 4 MG Acetaminophen (Tylenol Tab) 500 mg NOW STAT PO 08/25/16 00:35 08/25/16 00:38 DC 08/25/16 00:54 500 MG Oxycodone HCl (Roxicodone Immediate Rel Tab) 5 mg NOW STAT PO 08/25/16 01:48 08/25/16 01:49 DC 08/25/16 02:58 5 MG Oxycodone HCl (Roxicodone Immediate Rel 5MG Home Pack) 1 homepack UD ONCE PO 08/25/16 03:00 08/25/16 03:01 DC 08/25/16 02:59 1 HOMEPACK ED Course 0027: The patient was evaluated in room B8. A complete history and physical exam was performed. 0035: Ordered Tylenol Tab 500 mg PO, Oxycodone HCl 5 mg PO 0045: Ordered Zofran Odt 4 mg PO 0145: The patient would like something more for the pain. 0148: Ordered Oxycodone HCl 5 mg PO 0300: Ordered Oxycodone HCl 1 homepack PO 0305: Reevaluated the patient. Discussed results and discharge instructions: He verbalized understanding and agreement. The patient is ready for discharge. Medical Decision Differential diagnosis includes but is not limited to musculoskeletal pain, muscle spasm, nerve impingement, c-spine fracture, hematoma, shingles, and carotid dissection. The patient presents with right posterior neck pain. There was no rash to suggest shingles. The pain did not result from a fall. He had no focal neurologic deficits. He denied any headache. C-spine CT shows arthritis, no acute fracture. The patient's pain was reproducible on exam and with certain movements. He was given oral Zofran, oral oxycodone and oral Tylenol. He feels somewhat better. I do think he can be discharged. He believes he may have slept funny and then woke up with this pain, I think the pain is musculoskeletal. Heat, massage, some pain control were suggested. If worsening, he can return. [place] Drug Monitoring Program Search Results: patient reviewed within database, no issues identified Impression Primary Impression: Neck pain on right side Scribe Attestation The scribe's documentation has been prepared under my direction and personally reviewed by me in its entirety. I confirm that the note above accurately reflects all work, treatment, procedures, and medical decision making performed by me. Departure Information Dispostion Home / Self-Care Prescriptions Oxycodone Ir (Roxicodone Ir) 5 Mg Tab 1-2 TAB PO Q4H Y for Pain, #10 TAB Prov: Desmond Cash M.D. 08/25/16 Referrals Jenny Jones DMalikOMalik (PCP) Forms HOME CARE DOCUMENTATION FORM, IMPORTANT VISIT INFORMATION, WORK / SCHOOL INSTRUCTIONS Patient Instructions [facility] Additional Instructions heat, massage, time oxy ir 1-2 tab every 4 hours for pain tylenol for pain as well films today were ok -- arthritis was seen, no fractures see abigail cardenas this week for a recheck
[2016-08-25] MEDS ORDERED: ONDANSETRON 4MG OD TAB PO ONE (00:45)
[2016-08-25] MEDS ORDERED: WARF5TAB90 PO (02:15)
[2016-08-25] MEDS ORDERED: WARF7.5T PO (02:17)
[2016-08-25] MEDS ORDERED: OXYC1TAB3 PO (02:52)
[2016-08-25 02:59] VITALS: BP 103/55; PULSE 73; O2SAT 97
[2016-08-25] MEDS ORDERED: OXYCODONE IR HOME PACK PO ONE (03:00)
--- NOTE | 2016-08-25 07:31 | DIAGNOSTIC IMAGING REPORT ---
CT OF THE CERVICAL SPINE CLINICAL HISTORY: Neck pain status post trauma COMPARISON STUDY: No previous studies for comparison. CT DOSE: 478.70 mGy.cm TECHNIQUE: CT scan of the cervical spine was performed from the skull base to the thoracic inlet. Images are reviewed in the axial, sagittal, and coronal planes. IV contrast was not administered for this examination. FINDINGS: The visualized portions of the lung apices reveal no evidence of pneumothorax. The prevertebral soft tissues are normal. No fractures or traumatic subluxations are visualized. There are advanced multilevel degenerative changes. Minimal anterior subluxation of C3 on C4 is felt to be degenerative. There is marked disc space narrowing and discogenic endplate sclerosis the C4-5 and C5-6 levels. There is multilevel foraminal encroachment due to uncinate spurs. IMPRESSION: 1. No acute fractures or traumatic subluxations identified 2. Advanced multilevel degenerative changes Electronically signed by: Dwayne Brower M.D. 08/25/2016 7:29 AM Dictated Date/Time: 08/25/2016 7:28 AM
== END 2016-08-25 03:18 | disposition home or self-care (01) ==
LOC: C.EDB 00:18
DX: M54.2 Cervicalgia (principal); I10 Essential (primary) hypertension; E78.5 Hyperlipidemia, unspecified; I25.10 Atherosclerotic heart disease of native coronary artery without angina pectoris; K21.9 Gastro-esophageal reflux disease without esophagitis; F32.9 Major depressive disorder, single episode, unspecified; M10.9 Gout, unspecified; F17.200 Nicotine dependence, unspecified, uncomplicated; Z86.711 Personal history of pulmonary embolism; Z86.718 Personal history of other venous thrombosis and embolism; Z98.61 Coronary angioplasty status; Z98.890 Other specified postprocedural states; Z79.01 Long term (current) use of anticoagulants; Z79.82 Long term (current) use of aspirin; Z79.899 Other long term (current) drug therapy